=== PATIENT | female | born 1990 | race Caucasian/White ===

== ENCOUNTER 2020-05-17 01:40 | Inpatient (IN) | payer OTHER ==
[2020-05-17] MEDS ORDERED: ELECTROLYTE-148 SOLN 1,000 ML IV SCH (02:30)
[2020-05-17] MEDS ORDERED: AMPICILLIN SODIUM 2 GM VIAL ONE (02:40)
[2020-05-17] MEDS ORDERED: AMPICILLIN - 2 GM in SODIUM CHLORIDE 100 ML IVPB ONE (02:40)
[2020-05-17] MEDS ORDERED: OXYTOCIN 20 UNITS in 0.9% NS 20 UNIT/1,000 ML INFUS.BAG IV ONE ×2 (02:47→05:02)
[2020-05-17] MEDS ORDERED: LIDOCAINE HCL 1% PRESERVATIVE FREE - 30ML VIAL ONE (02:47)
[2020-05-17 03:06] VITALS: BMI 39.9
[2020-05-17 03:24] LABS: BASO % 0.2 % (0-2.0); EOS % 0.3 % (0-4.5); HEMATOCRIT 36.3 % (32.4-45.2); HEMOGLOBIN 12.3 GM/dL (10.7-15.3); LYMPH % 35.5 % (8-40); MEAN CELL VOLUME 88.3 fl (80-96); MEAN PLT VOLUME 12.2 fl (7.5-11.1); MONO % 11.4 % (3.8-10.2); NEUT % 52.6 % (42.8-82.8); PLATELET COUNT 91 K/MM3 (134-434); RBC 4.11 M/mm3 (3.60-5.2); RDW 16.9 % (11.6-15.6); WHITE BLOOD COUNT 5.9 K/mm3 (4.0-10.0)
[2020-05-17 03:38] LABS: INR 0.92 (0.83-1.09); PROTHROMBIN TIME (PATIENT) 11.3 SEC (9.7-13.0)
[2020-05-17 03:40] LABS: ACTIVATED PTT 28.1 SECONDS (25.2-36.5)
[2020-05-17 03:51] LABS: POTASSIUM 3.8 mmol/L (3.5-5.1)
[2020-05-17 03:52] LABS: CALCIUM 8.6 mg/dL (8.5-10.1)
[2020-05-17 03:53] LABS: BLOOD UREA NITROGEN 10.9 mg/dL (7-18)
[2020-05-17] MEDS ORDERED: PROMETHAZINE HCL 25 MG/1 ML VIAL ONE (03:54)
[2020-05-17] MEDS ORDERED: BUTORPHANOL TARTRATE 2 MG/ML VIAL ONE (03:54)
[2020-05-17 04:18] LABS: CREATININE 0.8 mg/dL (0.55-1.3)
[2020-05-17] MEDS ORDERED: BENZOCAINE 20% 57 GM BOTTLE TP PRN (04:28)
[2020-05-17] MEDS ORDERED: METHYLERGONOVINE MALEATE 0.2 MG/1 ML AMP IM PRN (04:28)
[2020-05-17] MEDS ORDERED: BENZOCAINE 28 GM HEMORRHOIDAL OINTMENT TP PRN (04:28)
[2020-05-17] MEDS ORDERED: WITCH HAZEL 50% (TUCKS) 40 PAD/JAR PAD TP PRN (04:28)
[2020-05-17] MEDS ORDERED: BISACODYL 10 MG SUPP.RECT RC PRN (04:28)
[2020-05-17] MEDS ORDERED: OXYTOCIN 20 UNITS in 0.9% NS 20 UNIT/1,000 ML INFUS.BAG IV SCH (04:30)
[2020-05-17] MEDS ORDERED: IBUPROFEN 600 MG TABLET (FP) PO ONE ×2 (06:15→11:44)
[2020-05-17] MEDS: IBUPROFEN 600 MG TABLET (FP) PO PRN ×3 (06:15→16:55)
[2020-05-17] MEDS: ACETAMINOPHEN 325 MG TABLET (FP) PO PRN ×3 (06:15→16:55)
[2020-05-17] MEDS ORDERED: ACETAMINOPHEN 325 MG TABLET (FP) ONE ×2 (06:15→11:44)
[2020-05-17] MEDS: AMPICILLIN - 1 GM in SODIUM CHLORIDE 100 ML IVPB SCH (19:12)
[2020-05-18 07:40] LABS: BASO % 0.3 % (0-2.0); EOS % 0.6 % (0-4.5); HEMOGLOBIN 9.7 GM/dL (10.7-15.3); LYMPH % 28.8 % (8-40); MCHC 33.4 g/dl (32.0-36.0); MEAN CELL VOLUME 89.9 fl (80-96); MEAN PLT VOLUME 12.1 fl (7.5-11.1); NEUT % 60.3 % (42.8-82.8); RBC 3.23 M/mm3 (3.60-5.2); RDW 17.1 % (11.6-15.6); WHITE BLOOD COUNT 6.7 K/mm3 (4.0-10.0)
[2020-05-18] MEDS: IBUPROFEN 600 MG TABLET (FP) PO PRN (08:38)
[2020-05-18] MEDS: ACETAMINOPHEN 325 MG TABLET (FP) PO PRN (08:39)
[2020-05-18 10:07] LABS: PLATELET ESTIMATE DECREASED
[2020-05-18 10:16] LABS: PLATELET COUNT 87 K/MM3 (134-434)
[2020-05-18] MEDS ORDERED: SENNOSIDES/DOCUSATE COMBO (SENNA PLUS) TABLET (UD) PO PRN (22:00)
[2020-05-19] MEDS: IBUPROFEN 600 MG TABLET (FP) PO PRN (09:18)
[2020-05-19] MEDS: ACETAMINOPHEN 325 MG TABLET (FP) PO PRN (09:19)
[2020-05-19 12:26] VITALS: BP 139/78; PULSE 88; TEMP 98
== END 2020-05-19 13:00 | disposition home or self-care (01) | DRG 541 ==
LOC: JDEL 01:40 → JLDR 02:00 → J3W 15:03
PROVIDERS: ADMIT Specialist; ATTEND Specialist
PROC: 10E0XZZ Delivery of Products of Conception, External Approach (ICD-10-PCS; principal; 2020-05-17)
PROC: 10907ZC Drainage of Amniotic Fluid, Therapeutic from Products of Conception, Via Natural or Artificial Opening (ICD-10-PCS; 2020-05-17)
PROC: 10D17Z9 Manual Extraction of Products of Conception, Retained, Via Natural or Artificial Opening (ICD-10-PCS; 2020-05-17)
DX: O99.824 Streptococcus B carrier state complicating childbirth (principal); B95.1 Streptococcus, group B, as the cause of diseases classified elsewhere; O73.0 Retained placenta without hemorrhage; O77.0 Labor and delivery complicated by meconium in amniotic fluid; Z3A.39 39 weeks gestation of pregnancy; Z37.0 Single live birth
CPT/HCPCS: 36415; 59409; 80048; 85025; 85461; 85610; 85730; 86780; 86850; 86900; 86901; 86999; C9803; U0003

== ENCOUNTER 2023-08-19 07:45 | Inpatient (IN) | payer OTHER ==
[2023-08-19 09:24] LABS: BASO % 0.3 % (0-2.0); EOS % 0.8 % (0-4.5); HEMATOCRIT 35.5 % (32.4-45.2); HEMOGLOBIN 11.8 GM/dL (10.7-15.3); LYMPH % 31.4 % (8-40); MCH 29.1 pg (25.7-33.7); MCHC 33.2 g/dl (32.0-36.0); MEAN CELL VOLUME 87.6 fl (80-96); MEAN PLT VOLUME 12.1 fl (7.5-11.1); MONO % 9.3 % (3.8-10.2); NEUT % 58.2 % (42.8-82.8); PLATELET COUNT 96 10^3/uL (134-434); RBC 4.06 M/mm3 (3.60-5.2); RDW 14.6 % (11.6-15.6); WHITE BLOOD COUNT 4.8 K/mm3 (4.0-10.0)
[2023-08-19 09:27] LABS: PROTHROMBIN TIME (PATIENT) 11.6 SEC (9.7-13.0)
[2023-08-19 09:30] LABS: ACTIVATED PTT 25.6 SECONDS (25.2-36.5)
[2023-08-19 09:39] VITALS: BMI 39.6
[2023-08-19 09:40] LABS: POTASSIUM 3.7 mmol/L (3.5-5.1)
[2023-08-19 09:41] LABS: CALCIUM 8.7 mg/dL (8.5-10.1)
[2023-08-19 09:45] LABS: CREATININE 0.8 mg/dL (0.55-1.3)
[2023-08-19] MEDS: ELECTROLYTE-148 SOLN 1,000 ML IV SCH (10:02)
[2023-08-19] MEDS: OXYTOCIN 30 UNITS in 0.9% NS 30 UNIT/500 ML INFUS.BAG IVPB SCH (10:42)
[2023-08-19 12:31] LABS: HIV INTERPRETATION NEGATIVE (NEGATIVE)
[2023-08-19] MEDS ORDERED: FENTANYL/BUPIVACAINE/NS/PF - PCEA - 50 ML DISP.SYRIN EP ONE (16:41)
[2023-08-19] MEDS ORDERED: NALOXONE HCL 0.4 MG/ML VIAL IVPUSH PRN (16:47)
[2023-08-19] MEDS ORDERED: LIDO 2%/EPI 1:200000 PRESRVFRE (20 ML SDVIAL) ONE (16:49)
[2023-08-19] MEDS ORDERED: BUPIVACAINE HCL/PF 0.25% (2.5MG/ML) 10 ML VIAL ONE (16:49)
[2023-08-19] MEDS: FENTANYL/BUPIVACAINE/NS/PF - PCEA - 50 ML DISP.SYRIN EP SCH (17:02)
[2023-08-19] MEDS ORDERED: OXYTOCIN 20 UNITS in 0.9% NS 20 UNIT/1,000 ML INFUS.BAG IV ONE (17:14)
[2023-08-19] MEDS ORDERED: LIDOCAINE HCL 1% PRESERVATIVE FREE - 30ML VIAL ONE (17:14)
[2023-08-19] MEDS ORDERED: METHYLERGONOVINE MALEATE 0.2 MG/1 ML AMP IM PRN (17:56)
[2023-08-19] MEDS ORDERED: BENZOCAINE 20% 57 GM BOTTLE TP PRN (17:56)
[2023-08-19] MEDS ORDERED: WITCH HAZEL 50% (TUCKS) 40 PAD/JAR PAD TP PRN (17:56)
[2023-08-19] MEDS ORDERED: oxyCODONE HCL 5 MG TABLET PO PRN (17:56)
[2023-08-19] MEDS ORDERED: ACETAMINOPHEN 325 MG TABLET (FP) PO PRN (17:56)
[2023-08-19] MEDS ORDERED: BISACODYL 10 MG SUPP.RECT RC PRN (17:56)
[2023-08-19] MEDS ORDERED: BENZOCAINE 28 GM HEMORRHOIDAL OINTMENT TP PRN (17:56)
[2023-08-19 18:26] LABS: CORD BASE EXCESS -5.4 mmol/L (0-2); CORD HCO3 21.8 mmHg (20-29); CORD PCO2 48.7 mmHg (30-78); CORD pH 7.269 (7.14-7.44)
[2023-08-19 18:29] LABS: CORD BASE EXCESS -3.7 mmol/L (0-2); CORD HCO3 22.2 mmHg (20-29); CORD PCO2 43.4 mmHg (30-78); CORD pH 7.327 (7.14-7.44)
[2023-08-19] MEDS: OXYTOCIN 20 UNITS in 0.9% NS 20 UNIT/1,000 ML INFUS.BAG IV SCH (18:30)
[2023-08-20] MEDS: IBUPROFEN 600 MG TABLET (FP) PO PRN (06:11)
[2023-08-20 07:04] LABS: BASO % 0.5 % (0-2.0); EOS % 0.5 % (0-4.5); HEMATOCRIT 32.6 % (32.4-45.2); MCH 29.8 pg (25.7-33.7); MCHC 33.9 g/dl (32.0-36.0); MEAN CELL VOLUME 87.9 fl (80-96); MONO % 9.8 % (3.8-10.2); NEUT % 61.2 % (42.8-82.8); PLATELET COUNT 93 10^3/uL (134-434); RBC 3.71 M/mm3 (3.60-5.2); RDW 14.4 % (11.6-15.6); WHITE BLOOD COUNT 7.8 K/mm3 (4.0-10.0)
[2023-08-20] MEDS: PRENATAL VITAMINS W/ FOLIC ACID TABLET (FP) PO SCH (09:26)
[2023-08-20] MEDS: SENNOSIDES/DOCUSATE COMBO (SENNA PLUS) TABLET (UD) PO PRN (21:31)
[2023-08-20 22:06] VITALS: TEMP 98.5
[2023-08-21 06:52] LABS: BASO % 0.3 % (0-2.0); EOS % 1.5 % (0-4.5); HEMATOCRIT 29.5 % (32.4-45.2); LYMPH % 35.9 % (8-40); MCHC 33.9 g/dl (32.0-36.0); MEAN CELL VOLUME 88.5 fl (80-96); MEAN PLT VOLUME 11.8 fl (7.5-11.1); MONO % 7.7 % (3.8-10.2); NEUT % 54.6 % (42.8-82.8); PLATELET COUNT 89 10^3/uL (134-434); RBC 3.33 M/mm3 (3.60-5.2); RDW 14.8 % (11.6-15.6); WHITE BLOOD COUNT 6.7 K/mm3 (4.0-10.0)
[2023-08-21 10:21] VITALS: BP 129/79; PULSE 84; RESP 17
== END 2023-08-21 13:17 | disposition home or self-care (01) | DRG 560 ==
LOC: JDEL 07:45 → JLDR 08:30 → J3W 21:30
PROVIDERS: ADMIT Obstetrics & Gynecology; ATTEND Obstetrics & Gynecology
PROC: 10E0XZZ Delivery of Products of Conception, External Approach (ICD-10-PCS; principal; 2023-08-19)
PROC: 0W8NXZZ Division of Female Perineum, External Approach (ICD-10-PCS; 2023-08-19)
PROC: 0HQ9XZZ Repair Perineum Skin, External Approach (ICD-10-PCS; 2023-08-19)
PROC: 10907ZC Drainage of Amniotic Fluid, Therapeutic from Products of Conception, Via Natural or Artificial Opening (ICD-10-PCS; 2023-08-19)
PROC: 3E0P7VZ Introduction of Hormone into Female Reproductive, Via Natural or Artificial Opening (ICD-10-PCS; 2023-08-19)
DX: O70.0 First degree perineal laceration during delivery (principal); O36.8130 Decreased fetal movements, third trimester, not applicable or unspecified; Z3A.38 38 weeks gestation of pregnancy; Z37.0 Single live birth
CPT/HCPCS: 36415; 36600; 80048; 82803; 85025; 85461; 85610; 85730; 86780; 86850; 86900; 86901; 87389; 96372; J2790